=== PATIENT | female | born 1980 | race Two or more races ===

== ENCOUNTER 2018-09-04 11:43 | Day surgery (SDC) | payer SELFPAY ==
[2018-09-03 15:14] VITALS: BMI 21.1
[2018-09-04] MEDS ORDERED: LIDOCAINE 1%/EPI 1:100000 (20 ML MULTI DOSE VIAL) ONE (12:40)
[2018-09-04] MEDS ORDERED: EPINEPHrine/PF 1 MG/1 ML (1:1,000) AMPULE ONE (12:40)
[2018-09-04] MEDS ORDERED: LIDOCAINE HCL 1%, 10 MG/ML (20ML VIAL) ONE (12:40)
[2018-09-04] MEDS ORDERED: BACITRACIN 15 GM TUBE TOPICAL OINTMENT ONE (12:40)
[2018-09-04] MEDS ORDERED: MIDAZOLAM HCL 2 MG/2 ML SINGLE DOSE VIAL ONE (13:14)
[2018-09-04] MEDS ORDERED: LIDOCAINE HCL/PF 2% SDV 5ML VIAL ONE (13:14)
[2018-09-04] MEDS ORDERED: ROCURONIUM BROMIDE 50 MG/5 ML VIAL ONE (13:14)
[2018-09-04] MEDS ORDERED: PROPOFOL 20 ML ONE (13:14)
[2018-09-04] MEDS ORDERED: SODIUM CHLORIDE 0.9% P/F 10 ML VIAL IJ ONE (13:33)
[2018-09-04] MEDS ORDERED: ceFAZolin SODIUM 1 GM VIAL IVPB ONE (13:34)
[2018-09-04] MEDS ORDERED: DEXAMETHASONE SOD PHOSPHATE 4 MG/1 ML VIAL ONE ×2 (13:35→16:09)
[2018-09-04] MEDS ORDERED: LIDOCAINE 1%/EPI 1:100000 (50 ML MULTI DOSE VIAL) NR ONE (14:12)
[2018-09-04] MEDS ORDERED: BUPIVACAINE LIPOSOME/PF (EXPAREL) 266 MG/20 ML VIAL NR ONE ×3 (14:41→15:01)
[2018-09-04] MEDS ORDERED: BUPIVACAINE HCL/PF 0.25% (2.5MG/ML) 10 ML VIAL ONE (14:46)
[2018-09-04] MEDS ORDERED: BUPIVACAINE HCL/PF 0.25% (2.5MG/ML) 10 ML VIAL IJ ONE (15:01)
[2018-09-04] MEDS ORDERED: GLYCOPYRROLATE 0.2 MG/1 ML VIAL ONE (15:47)
[2018-09-04] MEDS ORDERED: NEOSTIGMINE METHYLSULFATE 0.5 MG/ML - 10 ML MDV ONE (15:47)
[2018-09-04] MEDS ORDERED: ACETAMINOPHEN INJECTION 100 ML IVPB ONE (16:16)
[2018-09-04] MEDS ORDERED: PROMETHAZINE HCL 25 MG/1 ML VIAL IVPUSH PRN (16:18)
[2018-09-04] MEDS ORDERED: ONDANSETRON 4 MG/2 ML VIAL IVPUSH PRN (16:18)
[2018-09-04] MEDS ORDERED: oxyCODONE HCL 5 MG TABLET PO PRN (16:18)
[2018-09-04] MEDS ORDERED: ACETAMINOPHEN 1000 MG/100 ML VIAL (NON FORMULARY) IVPB PRN (16:19)
--- NOTE | 2018-09-04 16:25 | OP ---
Operative Note - Note: Operative Date: 09/04/18 Pre-Operative Diagnosis: Cosmetic Deformity of Absomen and Hypomastia Operation: Abdominoplasty. Transfer of subcutaneous Tissue to bilateral breasts Post-Operative Diagnosis: Same as Pre-op Surgeon: Demond Viramontes Process Designer: Kiel Monzon Anesthesia: General Specimens Removed: skin of abd Estimated Blood Loss (mls): 40 Drains & Tubes with Location: 2 15 monie drains
[2018-09-04] MEDS ORDERED: LACTATED RINGERS SOLUTION 1,000 ML IV SCH (17:00)
[2018-09-05 08:17] VITALS: PULSE 68
--- NOTE | 2018-09-05 08:30 | PN ---
Progress Note (short form) - Note Progress Note: Anesthesia post op Pt seen and examined S:Alert and awake comfortable O: Vital Signs Temperature 98.5 F 09/05/18 06:00 Pulse Rate 68 09/05/18 06:00 Respiratory Rate 20 09/05/18 06:00 Blood Pressure 116/66 09/05/18 06:00 O2 Sat by Pulse Oximetry (%) 98 09/04/18 21:00 a/P:s/p abdomino plasty lipo suction Doing well post op Continue current care Jones Price MD
[2018-09-05 10:20] VITALS: BP 94/61; TEMP 97.7
--- NOTE | 2018-09-05 11:13 | PN ---
Progress Note (short form) - Note Progress Note: POD#1 PT without complaints today. OOB and ambulating to the restroom. Vital Signs Period Temp Pulse Resp BP Sys/Stratton Pulse Ox Last 24 Hr 97.7 F-98.6 F 46-72 14-20 94-120/60-82 98-100 MCKENNA-right: 20ml serosangrenous Left: 85 ml serosangrenous GEN: A&0x3, NAD Breast: incision in b/l upper chest c/d/i and covered with bandaid. no ecchymosis noted. ABD: umbilical dressing c/d/i. abd incision dry and intact with dermabond and prineo tape in place LE: no calf tenderness or swelling noted b/l A/P: 38 yo female s/p Abdominoplasty. Transfer of subcutaneous Tissue to bilateral breasts Diet as tolerated Oral pain medicaitons as needed Discharge instructions and follow-up care D/w the patient MCKENNA care ordered for discharge
== END 2018-09-05 14:38 | disposition home or self-care (01) ==
LOC: JASUSAT 11:43 → J6S 18:05 → JASUSAT 09-05 14:38
PROVIDERS: ATTEND Plastic Surgery
CPT/HCPCS: 84703; 94010; 94760; J0131